=== PATIENT | male | born 1965 | race Caucasian/White ===

== ENCOUNTER 2017-03-12 07:28 | Day surgery (SDC) | payer BC ==
[2017-03-12] MEDS ORDERED: Lactated Ringers 1,000 ML IV SCH (07:30)
[2017-03-12] MEDS ORDERED: Propofol 200 MG/20 ML SDV IV ONE (09:30)
[2017-03-12] MEDS ORDERED: Lidocaine 2% 100 MG/5 ML Syringe IVPUSH ONE (09:30)
[2017-03-12] MEDS ORDERED: Midazolam 1 MG/ML 2 ML SDV IV ONE (09:30)
[2017-03-12] MEDS ORDERED: Simethicone Drops 40 MG/0.6 ML 30 ML Bottle ONE (09:48)
--- NOTE | 2017-03-12 10:02 | PCM.OPNOTE ---
- General Post-Op/Procedure Note Date of Surgery/Procedure: 03/12/17 Operative Procedure(s): c scope with bx Findings: descending colon polyp Pre Op Diagnosis: screening Post-Op Diagnosis: descending colon polyp Anesthesia Technique: MAC Primary Surgeon: Nii Robles Anesthesia Provider: Linda Pizarro Pathology: descending colon polyp Complications: None Condition: Good Free Text/Narrative:: see dictation
[2017-03-12 10:41] VITALS: BP 152/88
--- NOTE | 2017-03-12 12:02 | OR ---
DATE OF OPERATION: 03/12/2017 SURGEON: Nii Robles MD PROCEDURE PERFORMED: Colonoscopy with cold forceps biopsy. PREOPERATIVE DIAGNOSIS: Screening colonoscopy. POSTOPERATIVE DIAGNOSIS: Descending colon polyp. INDICATIONS FOR PROCEDURE: This is a 51-year-old white male, who presents for screening colonoscopy. He was offered and accepted same. DESCRIPTION OF OPERATION: After an excellent IV sedation was administered, digital rectal exam was performed. No marked abnormality was noted. Flexible colonoscope was inserted and advanced to the cecum without difficulty. The following findings were noted. Ascending colon, unremarkable. Transverse colon, unremarkable. Descending colon, a small polypoid lesion, biopsied with cold biopsy forceps, and sent for permanent. Sigmoid and rectum unremarkable. Colon was deflated, scope was removed. The patient tolerated the procedure well, and was taken to recovery room in good condition. /[id number] /FELISHAL
== END 2017-03-12 11:03 | disposition home or self-care (01) ==
LOC: FB.SDS 07:28
PROVIDERS: ATTEND Surgery
DX: Z12.11 Encounter for screening for malignant neoplasm of colon (principal); D12.4 Benign neoplasm of descending colon; F17.210 Nicotine dependence, cigarettes, uncomplicated
CPT/HCPCS: 45380; 88305; A9270; J2250; J2704; J7120

== ENCOUNTER → 2022-07-25 | Day surgery (SDC) | payer BC ==
[~2022-07-25] MED LIST: Lactated Ringers 1,000 ML IV SCH; Midazolam 1 MG/ML 2 ML SDV IV ONE; Propofol 200 MG/20 ML SDV IV ONE; Sodium Chloride 0.9% 10 ML Syringe FLUSH PRN
[2022-07-25 09:29] VITALS: BP 147/78; PULSE 55
== END ==
LOC: FB.SDS 06:44
PROVIDERS: ATTEND Surgery
DX: Z12.11 Encounter for screening for malignant neoplasm of colon (principal); K40.20 Bilateral inguinal hernia, without obstruction or gangrene, not specified as recurrent; Z86.010 Personal history of colon polyps; Z79.899 Other long term (current) drug therapy; Z87.891 Personal history of nicotine dependence
CPT/HCPCS: 00812-QZ; J2250; J2704; J7120